=== PATIENT | female | born 1955 | race Caucasian/White ===

== ENCOUNTER 2016-10-13 13:10 | Inpatient (IN) ==
[2016-10-13] MEDS ORDERED: SOLU-MEDROL 125 MG IVP STA (13:57)
[2016-10-13 14:28] LABS: ABG PCO2 37.6 mmHg (35-45); ABG PH 7.423 (7.35-7.45)
[2016-10-13 14:28] LABS: BASOPHILS % (AUTO) 0.4 % (0.0-3.0); EOSINOPHILS # (AUTO) 0.2 K/ul (0.0-0.7); EOSINOPHILS % (AUTO) 2.9 % (0.0-7.0); HEMATOCRIT 40.5 % (37.0-47.0); HEMOGLOBIN 13.6 g/dl (12.0-16.0); IMMATURE GRANULOCYTE % (AUTO) 0.4 % (0.0-5.0); LYMPHOCYTES % (AUTO) 25.8 (10.0-50.0); MEAN CORPUSCULAR HEMOGLOBIN 29.7 pg (27.0-31.0); MEAN CORPUSCULAR HGB CONC 33.6 (31.8-35.4); MEAN CORPUSCULAR VOLUME 88.4 fl (81.0-99.0); MONOCYTES # (AUTO) 0.7 K/uL (0.4-2.0); MONOCYTES % (AUTO) 8.5 (0-10); NEUTROPHILS # (AUTO) 4.9 K/ul (2.0-6.9); PLATELET COUNT 233 10^3/uL (140-440); RED BLOOD COUNT 4.58 10^6/ul (4.20-5.40); WHITE BLOOD COUNT 7.92 K/ul (4.6-10.2)
[2016-10-13 14:29] LABS: ABG BASE EXCESS 0 (-2.0-2.0); ABG HCO3 24.5 (22.0-26.0); ABG TCO2 26 (22.0-28.0)
[2016-10-13] MEDS: DUONEB NEB SCH ×2 (14:45→19:47)
[2016-10-13] MEDS: ROCEPHIN 1 GM in SODIUM CHLORIDE 100 ML IV SCH (14:46)
[2016-10-13 14:47] LABS: ALBUMIN 3.9 g/dL (3.4-5.0); ALBUMIN/GLOBULIN RATIO 1.15; ANION GAP 17.2; BILIRUBIN,TOTAL 0.39 mg/dL (0.00-1.20); BUN/CREATININE RATIO 18.66; CALCIUM 9.5 mg/dL (8.2-10.2); CREATININE 0.75 mg/dL (0.60-1.30); POTASSIUM 4.2 mmol/L (3.5-5.10); TOTAL PROTEIN 7.3 g/dL (5.8-8.1)
[2016-10-13 15:02] VITALS: BMI 45.5
[2016-10-13] MEDS: NORCO 5-325 PO SCH ×3 (15:54→22:07)
--- NOTE | 2016-10-13 15:54 | DI ---
EXAM: PA and lateral views of the chest HISTORY: Cough. COMPARISON: None FINDINGS: The cardiomediastinal silhouette is normal. There is mild elevation of the right hemidia phragm. There is blunting of the bilateral costophrenic angles with minimal patchy ground-glass. T here is no pneumothorax . The osseous structures demonstrate mild scattered degenerative change. Dupree rgical clips are noted in right upper quadrant. IMPRESSION: Mild blunting the costophrenic angles may represent minimal atelectasis/effusions versus minimal con solidation. Patchy ground-glass may represent small airways/central airway thickening such as bronch itis bronchiolitis versus mild vascular congestion.
[2016-10-13] MEDS ORDERED: ALBUTEROL 0.083% NEB NEB STA (17:12)
[2016-10-13] MEDS ORDERED: NAPROXEN 500 MG PO SCH ×21 (17:30)
[2016-10-13] MEDS ORDERED: SODIUM CHLORIDE 1,000 ML IV SCH (17:30)
[2016-10-13] MEDS ORDERED: NAPROSYN PO SCH (17:30)
[2016-10-13] MEDS ORDERED: ZITHROMAX PO STA (17:38)
[2016-10-13] MEDS: ROBITUSSIN AC SYRUP PO PRN ×2 (17:46→22:19)
[2016-10-13] MEDS: NEURONTIN PO SCH (17:49)
[2016-10-13] MEDS: XANAX PO SCH (17:50)
[2016-10-13] MEDS ORDERED: CELEXA PO SCH (21:00)
[2016-10-13] MEDS ORDERED: XANAX PO SCH (21:00)
[2016-10-13] MEDS ORDERED: NON-FORMULARY MEDICATION (Trazodone Hcl [Trazodone Hcl] 100 MG) PO SCH ×22 (21:00)
[2016-10-13] MEDS ORDERED: DESYREL PO SCH (21:00)
[2016-10-13] MEDS ORDERED: LOVENOX SUBCUT SCH (21:00)
[2016-10-13] MEDS: SOLU-MEDROL 125 MG IVP SCH (21:50)
[2016-10-14] MEDS: ROBITUSSIN AC SYRUP PO PRN ×2 (03:24→08:34)
[2016-10-14] MEDS: DUONEB NEB SCH ×3 (05:35→14:31)
[2016-10-14 05:36] LABS: BASOPHILS % (AUTO) 0.1 % (0.0-3.0); HEMATOCRIT 39.1 % (37.0-47.0); HEMOGLOBIN 13.2 g/dl (12.0-16.0); IMMATURE GRANULOCYTE % (AUTO) 0.7 % (0.0-5.0); LYMPHOCYTES # (AUTO) 0.9 K/uL (0.60-3.4); LYMPHOCYTES % (AUTO) 10.3 (10.0-50.0); MEAN CORPUSCULAR HEMOGLOBIN 29.7 pg (27.0-31.0); MEAN CORPUSCULAR HGB CONC 33.8 (31.8-35.4); MEAN CORPUSCULAR VOLUME 88.1 fl (81.0-99.0); MONOCYTES # (AUTO) 0.1 K/uL (0.4-2.0); MONOCYTES % (AUTO) 1.5 (0-10); NEUTROPHILS # (AUTO) 7.7 K/ul (2.0-6.9); NEUTROPHILS % (AUTO) 87.4; PLATELET COUNT 225 10^3/uL (140-440); RED BLOOD COUNT 4.44 10^6/ul (4.20-5.40)
[2016-10-14] MEDS: SOLU-MEDROL 125 MG IVP SCH (05:55)
[2016-10-14 06:05] LABS: ALBUMIN 3.7 g/dL (3.4-5.0); ALBUMIN/GLOBULIN RATIO 1.12; ANION GAP 15.2; BILIRUBIN,TOTAL 0.42 mg/dL (0.00-1.20); BUN/CREATININE RATIO 20.54; CALCIUM 9.3 mg/dL (8.2-10.2); CREATININE 0.73 mg/dL (0.60-1.30); POTASSIUM 4.2 mmol/L (3.5-5.10)
[2016-10-14] MEDS ORDERED: ASPIRIN EC PO SCH (08:00)
[2016-10-14] MEDS: NEURONTIN PO SCH (08:33)
[2016-10-14] MEDS: NORCO 5-325 PO SCH ×2 (08:34→15:07)
[2016-10-14] MEDS: XANAX PO SCH (08:34)
[2016-10-14] MEDS: ROCEPHIN 1 GM in SODIUM CHLORIDE 100 ML IV SCH (08:44)
[2016-10-14] MEDS ORDERED: NON-FORMULARY MEDICATION (Multivitamin [Multi-Vitamin Daily] 1 EACH) PO SCH ×22 (09:00)
[2016-10-14] MEDS ORDERED: ZITHROMAX PO SCH (09:00)
[2016-10-14] MEDS ORDERED: MULTIVITAMIN PO SCH (09:00)
[2016-10-14] MEDS ORDERED: TOPROL XL PO SCH (09:00)
[2016-10-14] MEDS ORDERED: VITAMIN D PO SCH (09:00)
[2016-10-14] MEDS ORDERED: PROTONIX PO SCH (10:00)
[2016-10-14] MEDS ORDERED: SOLU-MEDROL 125 MG IVP SCH (13:00)
--- NOTE | 2016-10-14 14:57 | HP ---
SOURCE: The source of this information is prior knowledge of the patient, review of her office records as well as discussion with she and relative Michelle; all considered reliable. PATIENT PROFILE: This is a 61-year-old, single, female resident of the [facility]. She was cooperative. CHIEF COMPLAINT: "She can't quit coughing." BRIEF HISTORY OF PRESENT ILLNESS: About one month ago she developed nasal congestion and cough. She called the office after a couple of weeks and was given Augmentin. She called today and said after the antibiotic, she got a little better but then started coughing worse. She was short of breath. She was seen in the office, was afebrile but had constant coughing. Her 02 sats were only 88%. There was no hemoptysis, no leg edema and really no chest pain or palpitations. There was no wheezing. We elected to directly admit. She never smoked herself but was exposed to secondary smoke for 30 years, stopping in 2002. It seems like everyone in the family has had a bronchitis or cough syndrome here lately. Her long and extensive medical problem list is noted below. PAST HISTORY: CHILDHOOD: Unremarkable. ALLERGIES/INTOLERANCE: LYRICA 25 MG (DIZZINESS), NAPROSYN 500 MG (PALPITATIONS) , TYLENOL #3 (GI UPSET) CURRENT MEDICATIONS: 1. Xanax/Alprazolam 0.25 mg p.o. b.i.d. as needed for anxiety 2. Aspirin 81 mg one by mouth each day 3. Vitamin D3 1000 international units once a day 4. Celexa 20 mg once a day 5. Neurontin 300 mg two times a day 6. Glucosamine 500 mg twice a day 7. [place] 0.5 to 1 every six hours as needed 8. Toprol 50 XL one a day 9. Multivitamin one a day 10. Naprosyn 500 mg twice a day 11. Desyrel 100 mg 2.5 at bedtime HOSPITALIZATIONS/SURGERIES/PROCEDURES: She had an EGD with hiatal hernia, Dr. Negar Haines 07/08/06; heart cath, negative, Dr. Ochoa Haines, 07/07/06 that was unremarkable. She had a colonoscopy with hemorrhoids and diverticular findings, Dr. Phillips, 12/05, repeat in 10 years. A T & A as a child; a fatty tumor removed right shoulder in the ; appendix removed in the and open gallbladder in , . [facility] admission was 07/06 through 07/08/06 for chest pain, GI cause. This is the first admission to [place]. FAMILY HISTORY: Heart disease in mother, brother, niece and maternal aunt. Diabetes in mother and maternal aunt. Breast cancer in paternal grandmother. Unknown cancer in father. HABITS: Never smoked though exposed to secondary smoke for 30 years, stopping in 2002 with no alcohol or drugs. SOCIAL HISTORY: Single. 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 She has no children. REVIEW OF SYSTEMS: GENERAL: No recent injuries or fever. INTEGUMENT: No rash or wound. HEENT: Stable on and off headaches, minimal nasal congestion and sore throat. NECK: Chronically sore; but without mass. CHEST: Cough without hemoptysis as noted. CARDIOVASCULAR: Denies exertional chest pain and occasional lower extremity edema. GI: No melena, hematochezia, nausea or vomiting. : Denies dysuria. MUSCULOSKELETAL/NEUROLOGIC: Has fibromyalgia with chronic muscle and sometimes joint discomfort. No swollen or red joints lately. Her gait is typically slow and uncomfortable but without falls, especially recently. Neurologic: She has lower extremity numbness on and off. PSYCHIATRIC: She has chronic on and off anxiety and depression but has never been suicidal and denies such now. PHYSICAL EXAMINATION: VITALS: (office) BP 128/76, pulse 72, respirations 28, temperature 98.9, height 62", weight 249 lbs. 02 sat 88% on room air. GENERAL: Appropriate for age white female with paroxysms of coughing. INTEGUMENT: Mucous membranes are moist. Eyegrounds are pink. Nonicteric sclerae. None to trace ankle edema. HEENT: Facial symmetry. Pupils equal, round, extraocular movements intact. Very minimal posterior pharyngeal redness, somewhat hoarse. NECK: No mass or thyroid and supple. CHEST: Obese without wheeze - diminished but clear. CARDIOVASCULAR: S1, S2 distant without murmur or carotid bruit. Distal pulse intact. GI: Obese, nontender. Soft. No rebound, guarding, mass or tenderness. MUSCULOSKELETAL/NEUROLOGIC: No red, swollen joints. Ambulatory without assistive device. Neurologic: Light touch sensation seems diminished in the lower extremity as before. PSYCHIATRIC: Oriented times three - purposeful conversation - well-kept. REASON FOR ADMISSION: 0. 61-year-old white female 1. Allergies/intolerances - see above 2. Procedural history - see above 3. Family history - see above 4. Hiatal hernia on EGD 5. Diverticular disease on colonoscopy 6. Hemorrhoidal disease on colonoscopy 7. Secondary smoke exposure 8. Menopausal 9. Disability 10. Allergic rhinitis 11. Degenerative joint disease 12. Fibromyalgia 13. Chronic pain medication 14. Degenerative disk disease - spinal 15. Degenerative spondylosis - spinal 16. Chronic depression 17. Hypertension 18. Gait decline 19. Gastroesophageal reflux 20. Impaired glucose tolerance 21. Chronic insomnia 22. Sleep apnea 23. Hyperlipidemia 24. Benign palpitations 25. Vitamin D deficiency REASON FOR ADMISSION: # Shortness of breath # Acute respiratory failure - hypoxemic at 88% on room air # Paroxysms of coughing PLAN: 1. Standard usual evaluation of labs and x-rays to help to find initial cause for her cough. 2. Anticipate IV fluids, steroids, neb treatment and IV antibiotics. 3. Other medicines will be reviewed and continued as able. 4. Labs will be followed daily. 5. Discharge plan from onset is home; but will be adjusted as needed. MTDD
[2016-10-14 15:09] VITALS: BP 132/72; TEMP 98
--- NOTE | 2016-10-14 15:22 | CT ---
EXAM: CT Angiogram Chest. HISTORY: Worsening cough. Decreased oxygen saturation. COMPARISON: Radiograph 1 day prior. TECHNIQUE: Multiple axial images of the chest were obtained following intravenous administration of 125 mL of Omnipaque 350, low osmolar. Images were reformatted in the sagittal and coronal plane. 3-D and maximum intensity projection reformatted images were created on an independent workstation. FINDINGS: No mediastinal, hilar, or axillary lymphadenopathy identified. Heart is mildly enlarged. There is no evidence for aortic dissection. Ascending thoracic aorta measures approximately 3.5 c m diameter. There are central filling defects within multiple pulmonary arterial lobar and segmental branches bi laterally. Contrast does pass beyond these filling defects.. There is no evidence for right heart strain. Right diaphragm is elevated, there is consolidation in the right lower lobe of the diaphrag m. Left lung is grossly clear. There may be a tiny amount of left pleural fluid. No pneumothorax identified. Limited images of the upper abdomen demonstrate no acute finding. Degenerative changes present in t he spine with ankylosis across several lower thoracic vertebral bodies. IMPRESSION: 1. Critical result: Bilateral pulmonary emboli. 2. Elevated right diaphragm with right lower lobe atelectasis or pneumonia. Comment: Findings were discussed with the patient's nurse at 3:17 p.m. 10/14/2016.
[2016-10-14] MEDS ORDERED: LOVENOX SUBCUT STA (15:33)
--- NOTE | 2016-10-24 15:29 | DS ---
DATE OF DISCHARGE/DATE OF SERVICE: 10/14/16 PATIENT PROFILE: This is a 61-year-old, single, female resident of the [facility]. She was cooperative. CHIEF COMPLAINT: "She can't quit coughing." BRIEF HISTORY OF PRESENT ILLNESS: About one month ago she developed nasal congestion and cough. She called the office after a couple of weeks and was given Augmentin. She called today and said after the antibiotic, she got a little better but then started coughing worse. She was short of breath. She was seen in the office, was afebrile but had constant coughing. Her 02 sats were only 88%. There was no hemoptysis, no leg edema and really no chest pain or palpitations. There was no wheezing. We elected to directly admit. She never smoked herself but was exposed to secondary smoke for 30 years, stopping in 2002. It seems like everyone in the family has had a bronchitis or cough syndrome here lately. Her long and extensive medical problem list is noted below. PAST HISTORY: CHILDHOOD: Unremarkable. ALLERGIES/INTOLERANCE: LYRICA 25 MG (DIZZINESS), NAPROSYN 500 MG (PALPITATIONS) , TYLENOL #3 (GI UPSET) CURRENT MEDICATIONS: 1. Xanax/Alprazolam 0.25 mg p.o. b.i.d. as needed for anxiety 2. Aspirin 81 mg one by mouth each day 3. Vitamin D3 1000 international units once a day 4. Celexa 20 mg once a day 5. Neurontin 300 mg two times a day 6. Glucosamine 500 mg twice a day 7. [place] 0.5 to 1 every six hours as needed 8. Toprol 50 XL one a day 9. Multivitamin one a day 10. Naprosyn 500 mg twice a day 11. Desyrel 100 mg 2.5 at bedtime HOSPITALIZATIONS/SURGERIES/PROCEDURES: She had an EGD with hiatal hernia, Dr. Negar Haines 07/08/06; heart cath, negative, Dr. Ochoa Haines, 07/07/06 that was unremarkable. She had a colonoscopy with hemorrhoids and diverticular findings, Dr. Phillips, 12/05, repeat in 10 years. A T & A as a child; a fatty tumor removed right shoulder in the 1970s; appendix removed in the and open gallbladder in [place], . [facility] admission was 07/06 through 07/08/06 for chest pain, GI cause. This is the first admission to [place]. FAMILY HISTORY: Heart disease in mother, brother, niece and maternal aunt. Diabetes in mother and maternal aunt. Breast cancer in paternal grandmother. Unknown cancer in father. HABITS: Never smoked though exposed to secondary smoke for 30 years, stopping in 2002 with no alcohol or drugs. SOCIAL HISTORY: Single. 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 She has no children. REVIEW OF SYSTEMS: GENERAL: No recent injuries or fever. INTEGUMENT: No rash or wound. HEENT: Stable on and off headaches, minimal nasal congestion and sore throat. NECK: Chronically sore; but without mass. CHEST: Cough without hemoptysis as noted. CARDIOVASCULAR: Denies exertional chest pain and occasional lower extremity edema. GI: No melena, hematochezia, nausea or vomiting. : Denies dysuria. MUSCULOSKELETAL/NEUROLOGIC: Has fibromyalgia with chronic muscle and sometimes joint discomfort. No swollen or red joints lately. Her gait is typically slow and uncomfortable but without falls, especially recently. Neurologic: She has lower extremity numbness on and off. PSYCHIATRIC: She has chronic on and off anxiety and depression but has never been suicidal and denies such now. PHYSICAL EXAMINATION: VITALS: (office) BP 128/76, pulse 72, respirations 28, temperature 98.9, height 62", weight 249 lbs. 02 sat 88% on room air. GENERAL: Appropriate for age white female with paroxysms of coughing. INTEGUMENT: Mucous membranes are moist. Eyegrounds are pink. Nonicteric sclerae. None to trace ankle edema. HEENT: Facial symmetry. Pupils equal, round, extraocular movements intact. Very minimal posterior pharyngeal redness, somewhat hoarse. NECK: No mass or thyroid and supple. CHEST: Obese without wheeze - diminished but clear. CARDIOVASCULAR: S1, S2 distant without murmur or carotid bruit. Distal pulse intact. GI: Obese, nontender. Soft. No rebound, guarding, mass or tenderness. MUSCULOSKELETAL/NEUROLOGIC: No red, swollen joints. Ambulatory without assistive device. Neurologic: Light touch sensation seems diminished in the lower extremity as before. PSYCHIATRIC: Oriented times three - purposeful conversation - well-kept. REASON FOR ADMISSION: 0. 61-year-old white female 1. Allergies/intolerances - see above 2. Procedural history - see above 3. Family history - see above 4. Hiatal hernia on EGD 5. Diverticular disease on colonoscopy 6. Hemorrhoidal disease on colonoscopy 7. Secondary smoke exposure 8. Menopausal 9. Disability 10. Allergic rhinitis 11. Degenerative joint disease 12. Fibromyalgia 13. Chronic pain medication 14. Degenerative disk disease - spinal 15. Degenerative spondylosis - spinal 16. Chronic depression 17. Hypertension 18. Gait decline 19. Gastroesophageal reflux 20. Impaired glucose tolerance 21. Chronic insomnia 22. Sleep apnea 23. Hyperlipidemia 24. Benign palpitations 25. Vitamin D deficiency REASON FOR ADMISSION: # Shortness of breath # Acute respiratory failure - hypoxemic at 88% on room air # Paroxysms of coughing HOSPITAL COURSE: She was treated with nebulized DUO NEBS and even at times Albuterol separate; was placed on IV steroids and the range of 75mg Q 6. She was started on Rocephin and given a Z-pack. Robitussin AC was used to attempt to help her paroxysm of coughing. She had a bad night; with coughing on and off and difficulty sleeping. Finding that she wasn't improving significantly the next morning we did obtain a CT angio; did show consolidation in the right lower lobe ; there is possibility of mild amount of left pleural fluid. There was mild heart enlargement but no evidence regarding heart strain. There was central filling defects of multiple pulmonary arterial lobar and segmental branches suggestive for pulmonary emboli; a contrast was noted to pass beyond these defects. We promptly increased her preventative Lovenox to 40mg to 1mg per kg; was pleased that she was continued to oxygenate with very limited amounts of oxygen but felt that this could develop a situation where echo therapy might be needed. We therefore suggested and made arrangements for transfer to [place] to allow for a pulmonary consultation. Her WBC started at 7.92 and went to 8.8, hgb 13.6 and stayed that range. Remainder of the differential was unremarkable. Her chemistries showed only ALT of 10 and then later glucose after steroids at 145. Her pro-BNP was slightly elevated at 139. Blood gasses were pH 7.4, pCO2 37 , pO2 54 with 88% saturation and bicarb 24 on room air. DISCHARGE ASSESSMENT/PROBLEM LIST (CHANGED FROM ADMISSION): # Shortness of breath # Acute respiratory failure- hypoxemic # Paroxysm of coughing # Right lower lobe pneumonia - Community exposed # Bilateral pulmonary emboli (source not assess) # Anticoagulation- Lovenox 1mg per kg PLAN: 1. As noted. MTDD
== END 2016-10-14 17:12 | disposition short-term general hospital (02) | DRG 189 ==
LOC: MEDSURG A 13:10 → OBSVTOIN 10-14 14:51
PROVIDERS: ADMIT Family Medicine; ATTEND Family Medicine
DX: J96.01 Acute respiratory failure with hypoxia (principal); I26.99 Other pulmonary embolism without acute cor pulmonale; J18.9 Pneumonia, unspecified organism; I10 Essential (primary) hypertension; R05 Cough; Z79.01 Long term (current) use of anticoagulants; Z79.899 Other long term (current) drug therapy
CPT/HCPCS: 36415; 80053; 82803; 83880; 85025; 87040; 93005; 93010; 94640; 96372; 96374; 96375; 96376

== ENCOUNTER 2016-10-14 17:05 | Outpatient (CLI) ==
[2016-10-13 15:02] VITALS: BMI 45.5
== END 2016-10-14 17:06 ==
LOC: AMBL 17:05
PROVIDERS: ATTEND Emergency Medicine
DX: J96.00 Acute respiratory failure, unspecified whether with hypoxia or hypercapnia (principal); I26.99 Other pulmonary embolism without acute cor pulmonale; J40 Bronchitis, not specified as acute or chronic

== ENCOUNTER 2017-03-28 14:27 | Emergency (ER) ==
--- NOTE | 2017-03-28 14:38 | ED.PDOC ---
General ED Provider: Dr. SVETA PUGH Chief Complaint: Bite Stated Complaint: CAT BITE RIGHT LOWER LEG Time Seen by Physician: 14:36 (SEE PHOTOS ALEJANDRO PRESENT) Exam Limitations: No limitations (OCCURED LAST WEEK) Primary Care Provider: KATELYNN HERNANDEZ Nursing and Triage Documentation Reviewed and Agree: Yes Trauma/Injury Complaint Exam - Bite Injury Complaint/Exam Location of Bite: SEE PHOTOS Bite Occured: 7 DAYS Symptoms Are: Still present (CAT) Type of Bite: Reports: Pet animal (STRICKLY INDOOR CAT) Initial Severity: Mild Current Severity: Mild Character: Reports: Full-thickness Aggravating: Reports: None Alleviating: Reports: None Associated Signs and Symptoms: Reports: Erythema, Swelling. Denies: Fever, Drainage, Lymphadenopathy, Numbness, Tingling, Limited ROM Related History: Reports: Unprovoked Animal Available for Observation: Yes Animal Control Notified: No Infection/Sepsis Risk Factors: Present: Full Thickness-Puncture, Delay in initial tx Bite Findings: Present: Erythema, Swelling, Tenderness. Absent: Fluctuance, Abscess, Ecchymosis, Hematoma, Joint erythema, Joint swelling, Foreign body ( SEE PHOTOS) Wound Description: Present: Puncture wound Drainage: Present: None Differential Diagnoses: Puncture Review of Systems - Review Of Systems Constitutional: Reports: No symptoms Eyes: Reports: No symptoms Ears, Nose, Mouth, Throat: Reports: No symptoms Respiratory: Reports: No symptoms Cardiac: Reports: No symptoms GI: Reports: No symptoms : Reports: No symptoms Musculoskeletal: Reports: No symptoms Skin: Reports: Other (PUNCTURE WOUND SEE PHOTOS) Neurological: Reports: No symptoms Endocrine: Reports: No symptoms Hematologic/Lymphatic: Reports: No symptoms All Other Systems: Reviewed and Negative Past Medical History - Past Medical History Previously Healthy: Yes Endocrine: Reports: None Cardiovascular: Reports: Hypertension, DVT Respiratory: Reports: None Hematological: Reports: None Gastrointestinal: Reports: None Genitourinary: Reports: None Neuro/Psych: Reports: Anxiety Musculoskeletal: Reports: None Cancer: Reports: None - Surgical History General Surgical History: Reports: None - Family History Family History: Reports: None - Social History Smoking Status: Never smoker Physical Exam - Physical Exam Appearance: Well-appearing, No pain distress, Well-nourished Eyes: SHIRA, EOMI, Conjunctiva clear ENT: Ears normal, Nose normal, Oropharynx normal Respiratory: Airway patent, Breath sounds clear, Breath sounds equal, Respirations nonlabored Cardiovascular: RRR, Pulses normal, No rub, No murmur GI/: Soft, Nontender, No masses, Bowel sounds normal, No Organomegaly Musculoskeletal: Normal strength, ROM intact, No edema, No calf tenderness Skin: Warm, Dry (PUNCTURE WOUND DOCUMENTED IN THE PHOTOS) Neurological: Sensation intact, Motor intact, Reflexes intact, Cranial nerves intact, Alert, Oriented Psychiatric: Affect appropriate, Mood appropriate Critical Care Note - Critical Care Note Total Time (mins): 0 Departure - Departure Time of Disposition: 15:00 Disposition: HOME SELF-CARE Discharge Problem: Cat bite of right lower leg Qualifiers: Encounter type: initial encounter Qualifier Code: (S81.851A) Open bite, right lower leg, initial encounter Instructions: Animal Bite (ED) Condition: Good Pt referred to PMD for follow-up: Yes Additional Instructions: Please call your Family Physician as soon as possible to schedule a follow-up appointment. Allergies/Adverse Reactions: Allergies No Known Allergies Allergy (Unverified 10/13/16 14:54) Home Medications: Ambulatory Orders Alprazolam [Xanax] 0.25 mg PO BIDWM 10/13/16 Aspirin [Aspirin EC] 81 mg PO DAILYWM 10/13/16 Cholecalciferol (Vitamin D3) [Vitamin D3] 1,000 unit PO DAILY 10/13/16 Citalopram Hydrobromide [Citalopram HBr] 20 mg PO BEDTIME 10/13/16 Gabapentin [Neurontin] 300 mg PO BIDWM 10/13/16 Glucosamine HCl 500 mg PO BIDWM 10/13/16 Hydrocodone/Acetaminophen [[place] 5-325 Tablet] 0.5 tab PO QID 10/13/16 Metoprolol Succinate [Toprol Xl] 50 mg PO DAILY 10/13/16 Multivitamin [Multi-Vitamin Daily] 1 each PO DAILY 10/13/16 Naproxen [Naprosyn] 500 mg PO BIDWM 10/13/16 Trazodone HCl 100 mg PO BEDTIME 10/13/16 Disposition Discussed With: Patient, Family
[2017-03-28 14:41] VITALS: BP 153/83; TEMP 98; BMI 47.7
[2017-03-28] MEDS ORDERED: ROCEPHIN IM STA (14:41)
[2017-03-28] MEDS ORDERED: LIDOCAINE 1 % AMP 5 ML (SUTURES) IM STA (14:41)
== END 2017-03-28 15:10 | disposition home or self-care (01) ==
LOC: ED 14:27
DX: S81.851A Open bite, right lower leg, initial encounter (principal); W55.01XA Bitten by cat, initial encounter
CPT/HCPCS: 96372; 99282

== ENCOUNTER 2017-04-14 12:30 | Outpatient (CLI) ==
--- NOTE | 2017-04-14 13:47 | DEXA ---
EXAM: Bone densitometry. History: Steroid medication. Findings: Evaluation of the lumbar spine reveals a total bone mineral density of 1.091 grams per centimeter sq uared with T-score of negative 0.7. Evaluation of the left hip reveals a total bone mineral density of 0.967 grams per centimeter square d with T-score of negative 0.3. Evaluation of the right hip reveals a total bone mineral density of 0.881 grams per centimeter squar ed with T-score of negative 1.0 Impression: 1. Normal bone mineral density of the lumbar spine and left hip. 2. Osteopenia of the right hip.
== END 2017-04-14 12:31 | disposition home or self-care (01) ==
LOC: RAD 12:30
PROVIDERS: ATTEND Family Medicine
DX: Z79.52 Long term (current) use of systemic steroids (principal)

== ENCOUNTER 2017-04-16 10:02 | Outpatient (CLI) | END 2017-04-16 10:03 | disposition home or self-care (01) | LOC: RAD 10:02 | PROVIDERS: ATTEND Family Medicine | DX: Z12.31 Encounter for screening mammogram for malignant neoplasm of breast (principal) | CPT/HCPCS: 77067 ==

== ENCOUNTER 2017-12-23 08:46 | Outpatient (CLI) | END 2017-12-23 08:47 | disposition home or self-care (01) | LOC: CAR 08:46 | PROVIDERS: ATTEND Family Medicine | DX: J96.91 Respiratory failure, unspecified with hypoxia (principal); G47.33 Obstructive sleep apnea (adult) (pediatric) | CPT/HCPCS: 94761 ==

== ENCOUNTER 2018-11-10 10:16 | Outpatient (CLI) ==
--- NOTE | 2018-11-10 11:29 | MAMMO ---
EXAM: Digital screening mammogram with tomosynthesis HISTORY: Screening COMPARISON: 04/16/2017 FINDINGS: MLO and CC views of the right and left breast were performed. Tomosynthesis was performed . Computer aided detection utilized. The breast tissue is almost entirely fatty replaced. There is no evidence for mass, asymmetry, distortion, or suspicious calcifications in either breast. IMPRESSION: 1. No mammographic evidence of malignancy in the right or left breast. 2. Annual screening mammogram is recommended in one year. BIRADS category 1, negative examination
== END 2018-11-10 10:17 | disposition home or self-care (01) ==
LOC: RAD 10:16
PROVIDERS: ATTEND Family Medicine
DX: Z12.31 Encounter for screening mammogram for malignant neoplasm of breast (principal)